=== PATIENT | female | born 1960 | race African-American/Black ===

== ENCOUNTER → 2017-03-15 | Outpatient (CLI) | payer OTHER ==
--- NOTE | 2017-03-15 13:01 | RAD ---
EXAM: Chest 2 views. HISTORY: Sarcoidosis, hypertension. COMPARISON: None. FINDINGS: Frontal and lateral views of the chest are obtained. There are postsurgical changes and a suture line along the right major fissure. There is mild atelectasis in the bases. There is no pneumothorax or pleural effusion. The heart is not enlarged. IMPRESSION: 1. No confluent infiltrates.
--- NOTE | 2017-03-15 15:02 | RAD ---
AP and lateral right knee radiographs 03/15/2017 Clinical history: Right knee pain. History of arthritis. Diabetes and osteoporosis. AP and lateral digital radiographs of the right knee were obtained. No fracture or dislocation of the right knee is seen. Mild to moderate degenerative changes are seen involving all 3 compartments of the right knee. These consist of joint compartment narrowing, subchondral sclerosis and associated osteophyte formation. There may be a small right suprapatellar joint effusion. No fracture or dislocation of the right knee is seen. Impression: Mild to moderate degenerative changes are seen involving the right knee. No acute osseous abnormality is seen.
== END | disposition home or self-care (01) ==
LOC: RAD 10:04
PROVIDERS: ATTEND Surgery
DX: M17.11 Unilateral primary osteoarthritis, right knee (principal); D86.9 Sarcoidosis, unspecified; I10 Essential (primary) hypertension; J98.11 Atelectasis
CPT/HCPCS: 71020; 73560

== ENCOUNTER → 2017-06-08 | Outpatient (CLI) | payer OTHER ==
--- NOTE | 2017-06-08 10:10 | [facility] ---
Bone mineral density exam History: Takes calcium supplement, steroid use, diabetes Comparison: None Findings: Bone mineral density examination utilizing DEXA was performed. Left hip bone mineral density of 0.898 g/cm2 corresponds with a T score -0.4, Z score -0.2. The bone mineral density of the lumbar spine was 0.868 g/cm2 which corresponds with a T-score of -1.6, Z score -1.2. By World [employer] on Osteoporosis criteria, a T score of 0 to-1 SD is considered to be within normal limits. A T score of -1 to -2.5 SD is considered osteopenia. A T score less than -2.5 SD is considered osteoporosis Impression: 1. There is osteopenia of the lumbar spine. Left hip bone mineral density is considered within normal limits. Electronically signed by: Clifford Pereira MD (06/08/2017 10:07 AM) [email or web address]
== END | disposition home or self-care (01) ==
LOC: KCIC DEXA 09:40
PROVIDERS: ATTEND Family Medicine
DX: M81.0 Age-related osteoporosis without current pathological fracture (principal); E11.9 Type 2 diabetes mellitus without complications
CPT/HCPCS: 77080

== ENCOUNTER → 2017-07-23 | Outpatient (CLI) | payer OTHER | END | disposition home or self-care (01) | LOC: MAMMO 14:27 | PROVIDERS: ATTEND Family Medicine | DX: Z12.31 Encounter for screening mammogram for malignant neoplasm of breast (principal) | CPT/HCPCS: G0202; 77067 ==